=== PATIENT | female | born 1930 | race Caucasian/White ===

== ENCOUNTER → 2016-12-04 | Outpatient (CLI) | payer MEDICARE, MEDICAID ==
[~2016-12-04] MED LIST: AC325T PO; ACET-168 PO; ACET325T38 PO; ALBU0.8322 IH; ALLO100T PO; ALLP100T PO; ASP325T PO; ASP81TEC PO; ASPI-875 PO; BETA15CR4 TOP; CEPH-38 PO; CHOL100011 PO; CIPR100T; CLPD75T PO; CPR250T PO; CPR500T PO; CTLP20T PO; CYAN10007 PO; D50KC; DIVA125C10 PO; DIVA125T2 PO; DVL125C PO; DVL500TSR; FAMO20TA5 PO; FAMO40TA6 PO; FLC1T PO; FRSM40T; FURO20TA4 PO; FURO80TA3; GABA600T; GALA24CA; GALA24CA PO; GUAI10SY4 PO; GUAI5SYR PO; HYDR-31; HYDR-3720 PO; HYDR-3820 PO; IBP800T PO; INSU100C4; INSU100V6 SQ; INSU100V8; KCL20TCR; LANO454C3 TOP; LOPE-134 PO; LOPE2TAB17 PO; MAGN-77 PO; MAGN400O7 PO; MELO7.5T46 PO; MEMA10TA; MEMA10TA PO; METO200T4 PO; METO200T6 PO; MULT-25 PO; MULT1TAB12 PO; MULT1TAB53; NATURAL TEARS OU; NF-KET2% TOP; NITR100C3; NITR100C3 PO; NST15O; NTR.4SL SL; NYST1POW15 TOP; OMEG1CAP51 PO; OMG1KC; ONDN4T PO; PEG250PW; PEG250PW PO; PNT40TEC; POLY17PO23 PO; PRAM0.252 PO; PRAM1.5T4; PREG100C PO; PROM25SU43 RC; RMP2.5C PO; SENN1TAB76; SENN1TAB76 PO; SENN8.6T80 PO; SENSICARE TOP; SMV10T; SMV10T PO; SPIR50TA27; SPRN25T PO; TR1C15 TOP; TRAM50TA2 PO; TRL10C90 TOP; TRM50TRX; ZINC57OI TP; [UNRECOGNIZED DRUG - OTHER] TOP
[2016-12-04 21:13] LABS: BILIRUBIN,URINE NEGATIVE (NEGATIVE); KETONES,URINE NEGATIVE (NEGATIVE); LEUKOCYTE ESTERASE ,URINE 3+ (NEGATIVE); NITRITE,URINE NEGATIVE (NEGATIVE); PH,URINE 5 (5-9); PROTEIN,URINE 1+ (NEGATIVE); UROBILINOGEN,URINE NORMAL (NORMAL)
[2016-12-04 21:23] LABS: WBC,URINE TNTC /HPF
== END ==
LOC: CVS 21:08
PROVIDERS: ATTEND Family Medicine
DX: R31.9 Hematuria, unspecified (principal)
CPT/HCPCS: 81000; 87077; 87088; 87186

== ENCOUNTER → 2016-12-15 | Outpatient (CLI) | payer MEDICARE, MEDICAID ==
[~2016-12-15] MED LIST changes: -ACET-168 PO; -ACET325T38 PO; -BETA15CR4 TOP; -DIVA125C10 PO; -DVL125C PO; -FAMO20TA5 PO; -GUAI5SYR PO; -HYDR-3820 PO; -LOPE-134 PO; -MAGN400O7 PO; -MELO7.5T46 PO; -METO200T4 PO; -PREG100C PO; -PROM25SU43 RC
[2016-12-15 19:31] LABS: BILIRUBIN,URINE NEGATIVE (NEGATIVE); KETONES,URINE NEGATIVE (NEGATIVE); LEUKOCYTE ESTERASE ,URINE 2+ (NEGATIVE); NITRITE,URINE NEGATIVE (NEGATIVE); PH,URINE 6 (5-9); PROTEIN,URINE 1+ (NEGATIVE); UROBILINOGEN,URINE NORMAL (NORMAL)
[2016-12-15 19:41] LABS: SQUAMOUS EPITHELIAL CELL,UR 0-2 /HPF; WBC,URINE 25-50 /HPF
== END ==
LOC: CVS 19:25
PROVIDERS: ATTEND Family Medicine
DX: N39.0 Urinary tract infection, site not specified (principal)
CPT/HCPCS: 81000; 87088

== ENCOUNTER → 2016-12-18 | Outpatient (CLI) | payer MEDICARE, MEDICAID ==
[~2016-12-18] VITALS: Ht 157.5 cm; Wt 99.8 kg
[2016-12-18 16:28] VITALS: BP 136/64
== END ==
LOC: SDC 15:12
PROVIDERS: ATTEND Family Medicine
DX: Z45.2 Encounter for adjustment and management of vascular access device (principal); Z79.2 Long term (current) use of antibiotics

== ENCOUNTER → 2016-12-23 | Outpatient (CLI) | payer MEDICARE, MEDICAID ==
[2016-12-23 23:22] LABS: BILIRUBIN,URINE NEGATIVE (NEGATIVE); KETONES,URINE 1+ (NEGATIVE); LEUKOCYTE ESTERASE ,URINE 2+ (NEGATIVE); NITRITE,URINE NEGATIVE (NEGATIVE); PH,URINE 5 (5-9); PROTEIN,URINE 1+ (NEGATIVE); UROBILINOGEN,URINE NORMAL (NORMAL)
[2016-12-23 23:31] LABS: WBC,URINE 25-50 /HPF
== END ==
LOC: CVS 23:14
PROVIDERS: ATTEND Family Medicine
DX: Z79.2 Long term (current) use of antibiotics (principal)
CPT/HCPCS: 81000; 87088

== ENCOUNTER 2017-01-04 10:19 | Emergency (ER) | payer MEDICARE, MEDICAID ==
[~2017-01-04] VITALS: Ht 157.5 cm; Wt 99.8 kg
--- NOTE | 2017-01-04 10:42 | ED Fall/Injury ---
General Chief Complaint: Trauma-Non Activation Stated Complaint: FALL Source: patient Exam Limitations: no limitations History of Present Illness Time seen by provider: 10:23 Initial Comments Here by EMS with report of fall from the [facility]. Patient apparently was transferring when she fell backwards and hit her head on a wheelchair bar. No loss of consciousness. Small laceration noted. Tetanus is up-to-date. Denies other pain. Occurred: just prior to arrival (30 min ago) Severity: mild Injuries/Pain Location: head, neck Context: lost balance Loss of Consciousness: no loss of consciousness Modifying Factors: Improves With Immobilization, Worse With Movement Associated Symptoms (Fall): Denies Symptoms Allergies and Home Medications Allergies Coded Allergies: Penicillins (Verified Allergy, Unknown, 04/01/06) codeine (Verified Allergy, Unknown, 04/01/06) propoxyphene (Verified Allergy, Unknown, 04/01/06) Home Medications Acetaminophen 325 Mg Tablet, 650 MG PO Q4H PRN for PAIN/TEMP, (Reported) TAKES 2 (325MG) TABLETS NEEDED FOR MILD PAIN AND ELEVATED TEMP *MAX 6 TIMES* (NOT TO EXCEED 4GMS OF ACETAMINOPHEN IN 24 HOURS) Albuterol Sulfate 2.5 Mg/3 Ml Solution, 2.5 MG IH Q4H PRN, (Reported) NEEDED FOR COUGH *MAX 6 TIMES* Allopurinol 100 Mg Tab, 100 MG PO BID, (Reported) Cephalexin Monohydrate 500 Mg Capsule, 1 EACH PO TID for 7 Days Prescribed by: AUBREY LOPEZ on 05/03/13 1305 Cholecalciferol 1,000 Unit Capsule, 1,000 UNIT PO BID, (Reported) Ciprofloxacin Hcl 250 Mg Tablet, 250 MG PO DAILY, (Reported) UTI PROPHYLAXIS Citalopram Hydrobromide 20 Mg Tablet, 20 MG PO HS, (Reported) Cyanocobalamin 1,000 Mcg Tablet.sa, 1,000 MCG PO DAILY, (Reported) Divalproex Sodium 125 Mg Tablet.dr, 375 MG PO HS, (Reported) TAKES 3 (125MG) TABLETS AT BEDTIME Famotidine 40 Mg Tablet, 40 MG PO BID, (Reported) Folic Acid 1 Mg Tablet, 0.5 MG PO DAILY, (Reported) TAKES 1/2 (1MG) TABLET DAILY Furosemide 20 Mg Tablet, 20 MG PO MON, WED, FRI, (Reported) Galantamine Hydrobromide 24 Mg Cap24h.pel, 24 MG PO DAILY, (Reported) Guaifenesin/Dextromethorphan 10 Ml Liqd, 5 ML PO Q4H PRN for COUGH, (Reported) NEEDED FOR COUGH Hydrocodone Bit/Acetaminophen 1 Ea Tab, 1 TAB PO Q4H PRN for PAIN, (Reported) 10-325MG TABLET NEEDED FOR PAIN *6 TIMES MAX *(NOT TO EXCEED 4GMS OF ACETAMINOPHEN IN 24 HOURS) Hydrocodone Bit/Acetaminophen 1 Ea Tab, 1 TAB PO HS, (Reported) 10-325MG TABLET NOT TO EXCEED 3GMS OF ACETAMINOPHEN IN 24 HOURS) Insulin Glargine,Hum.rec.anlog 100 Unit/1 Ml Vial, 45 UNIT SQ DAILY, (Reported) Insulin Glargine,Hum.rec.anlog 100 Unit/1 Ml Vial, 12 UNIT SQ HS, (Reported) Magnesium Hydroxide 80 Mg/Ml Oral.susp, 30 ML PO DAILY PRN for CONSTIPATION, ( Reported) NEEDED FOR CONSTIPATION Memantine Hcl 10 Mg Tablet, 10 MG PO HS, (Reported) Metoprolol Succinate 200 Mg Tab.sr.24h, 200 MG PO DAILY, (Reported) Mineral Oil/Petrolatum,White 16 Oz Cream.gm., TOP BID, (Reported) APPLY OVER TOP OF TRIAMCINOLONE CREAM TWICE DAILY UNTIL HEALED Multivitamins W-Minerals 1 Each Tablet, 1 TAB PO HS, (Reported) Nitroglycerin 0.4 Mg Tab, 0 SL PRN PRN, (Reported) 1 TABLET EVERY 5 MINUTES X 3 DOSES NEEDED FOR CHEST PAIN Chazy-3 Fatty Acids/Fish Oil 1 Each Capsule, 1,000 MG PO DAILY, (Reported) Ondansetron Hcl 4 Mg Tab, 4 MG PO Q4H PRN for NAUSEA, (Reported) NEEDED FOR NAUSEA MAX 6 TIMES Polyethylene Glycol 17 Gm Pack, 17 GM PO EVERY OTHER DAY, (Reported) Ramipril 2.5 Mg Capsule, 2.5 MG PO DAILY, (Reported) Senna 8.6 Mg Tab, 1 TAB PO BID, (Reported) Simvastatin 10 Mg Tab, 10 MG PO HS, (Reported) Spironolactone 25 Mg Tab, 25 MG PO DAILY, (Reported) Trolamine Salicylate 90 Gm Tube, TOP HS, (Reported) APPLY TO BILATERAL FEET Zinc Oxide 57 Gm Oint..gm., TP BID PRN for GAULDING, (Reported) APPLY NEEDED TWICE DAILY TO GAULDING AREAS [Natural Tears] , 2 DROPS OU Q4H PRN for DRYNESS/ITCH, (Reported) NEEDED FOR DRYNESS/ ITCHING MAX 6 TIMES [Nature Care Gel] , TOP HS, (Reported) APPLY GEL TO RIGHT NARE BEFORE PLACING OXYGEN [Sensicare 3] , TOP BID PRN for PROTECTIVE BARRIER, (Reported) APPLY TO BUTTOCKS AND CRACK TWICE DAILY UNTIL HEALED THEN NEEDED FOR A PROTECTIVE BARRIER Constitutional: see HPI, No chills, No fever Eyes: No Symptoms Reported Ears, Nose, Mouth, Throat: no symptoms reported Respiratory: no symptoms reported Cardiovascular: no symptoms reported Gastrointestinal: no symptoms reported Musculoskeletal: no symptoms reported Skin: see HPI, lesions Psychiatric/Neurological: No Symptoms Reported Other History Limited by dementia Past Jtmwaae-Vkaqxm-Yfwgza Hx Patient Social History Alcohol Use: Denies Use Recreational Drug Use: No Smoking Status: Unknown if Ever Smoked Recent Hopitalizations: Yes Immunizations Up To Date Date of Pneumonia Vaccine: May 26, 2008 Date of Influenza Vaccine: Mar 21, 2015 Surgeries HX Surgeries: Yes Surgeries: Coronary Stent Respiratory Hx Respiratory Disorders: Yes (dgtr states that pt refuses CPAP) Respiratory Disorders: Sleep Apnea, COPD Cardiovascular Hx Cardiac Disorders: Yes (STENT, history of heart failure) Cardiac Disorders: Atrial Fibrillation, Coronary Artery Disease, Hypertension Neurological Hx Neurological Disorders: Yes Neurological Disorders: Dementia, TIA Reproductive System Hx Reproductive Disorders: No Genitourinary Hx Genitourinary Disorders: Yes (incontinence) Gastrointestinal Hx Gastrointestinal Disorders: Yes (Dysphagia) Gastrointestinal Disorders: Gastroesophageal Reflux Musculoskeletal Hx Musculoskeletal Disorders: Yes (MUSCLE WEAKNESS, RLS) Musculoskeletal Disorders: Osteoporosis Endocrine Hx Endocrine Disorders: Yes Endocrine Disorders: Diabetes, Insulin dep HEENT HX ENT Disorders: No Psychosocial Hx Psychiatric Problems: Yes Behavioral Health Disorders: Anxiety, Depression Blood Transfusions Hx Blood Disorders: No Reviewed Nursing Assessment Reviewed/Agree w Nursing PMH: Yes Family Medical History Significant Family History: No Pertinent Family Hx Physical Exam Vital Signs Vital Sign - Last 12Hours 01/04/17 10:19 Temp 98.1 Pulse 79 Resp 18 B/P (MAP) 108/63 Pulse Ox 96 O2 Delivery Room Air Capillary Refill : General Appearance: WD/WN, no apparent distress Neck: full range of motion, supple Cardiovascular: regular rate, rhythm, no murmur Respiratory: lungs clear, normal breath sounds Gastrointestinal: non tender, soft Back: normal inspection, no CVA tenderness, no vertebral tenderness Neurologic/Psychiatric: alert, oriented x 3 Skin: normal color, warm/dry, other (1 cm laceration to the posterior aspect of the head with bleeding controlled.) Penelope Coma Score Best Eye Response: (4) Open Spontaneously Best Verbal Response: (5) Oriented Best Motor Response: (6) Obeys Commands Laceration Repair : Wound Location: Scalp Other Wound Location Posterior Wound Length (cm): 1 Wound's Depth, Shape: superficial Wound Explored: contaminated Irrigated w/ Saline (ccs): 50 Betadine Prep?: Yes Anesthesia: 1% Lidocaine Volume Anesthetic (ccs): 1 Wound Debrided: minimal Staple Repair: Stapler 35W Number of Sutures: 1 Layer Closure?: 1 Number Deep Layer Sutures: 0 Progress Cleaned and anesthetized. Wound closed with One staple. Tolerated procedure well. No complications. Progress/Results/Core Measures Results/Orders My Orders Orders - SHELLIE RUELAS MD Ct Head/Cervical Spine Wo (01/04/17 10:28) Lidocaine 1% Injection (Xylocaine 1% Inj (01/04/17 12:20) Vital Signs/I&O Vital Sign - Last 12Hours 01/04/17 10:19 Temp 98.1 Pulse 79 Resp 18 B/P (MAP) 108/63 Pulse Ox 96 O2 Delivery Room Air Progress Note : Progress Note Seen and evaluated. CT head and neck ordered. Tetanus is up-to-date. Monitor patient. 1220: No acute findings. Laceration cleaned and closed by me with breanna. Discharge back to [facility] with return precautions. Patient family verbalized understanding instructions and agreement with plan. Diagnostic Imaging Diagonstic Imaging: CT Plain Films/CT/US/NM/MRI: c-spine, head Comments VIA [facility]. [place], [place] NAME: SONUCASSANDRA SHARMA REC#: [id number] PT STATUS: REG ER : 1930 PHYSICIAN: SHELLIE RUELAS MD ADMIT DATE: 01/04/17/ER Draft Date of Exam:01/04/17 CT HEAD/CERVICAL SPINE WO CLINICAL INDICATION: Patient fell in bathroom this morning, has headache and neck pain. EXAM: Head CT without IV contrast. Axial CT scan of the cervical spine with sagittal and coronal reformations. COMPARISON: CT scan of the head and cervical spine without contrast dated 04/26/2015. FINDINGS: HEAD CT: There is no evidence of acute cerebral infarct, intracranial hemorrhage, or gross mass effect. Areas of focal and subtle patchy areas of low-attenuation white matter changes in both cerebral hemispheres, likely representing chronic small vessel ischemic disease. There is slight progression of brain parenchymal volume loss compared to the prior study. There is normal lovell-white matter distinction. There is no significant midline shift or herniation. There is no evidence of hydrocephalus. The basal cisterns are unremarkable. The skull, extracranial soft tissue, and orbits are unremarkable. The paranasal sinuses are unremarkable. CERVICAL SPINE: There is no acute cervical spine fracture. There is no significant change to the multilevel cervical spine degenerative disease. There is stable grade 1 anterolisthesis C2 on C3 with no pars defect seen and is likely degenerative. There is multilevel loss of intervertebral disc height seen throughout cervical spine which is severe at the C3-C4, C4-C5, C5-C6 levels. There are some degree of intervertebral bone fusion/bridging seen at the C3-C6 levels. There is no moderate to severe left C6-C7 bony neural foramen narrowing which is stable. The neck soft tissue structures show no significant interval abnormality. Visualized lung apices are clear. IMPRESSION: 1: There is no evidence of acute intracranial process. 2: There is no interval acute cervical spine fracture. 3: There is stable multilevel cervical spine degenerative disease including grade 1 anterolisthesis of C2 on C3. Dictated on workstation # [id number] Dict: 01/04/17 1057 Trans: 01/04/17 1118 [facility] [id number] Interpreted by: WARREN RIOS MD Electronically signed by: Departure Impression Impression: Primary Impression: Scalp laceration Qualified Codes: S01.01XA - Laceration without foreign body of scalp, initial encounter Additional Impression: Minor head injury Qualified Codes: S00.90XA - Unspecified superficial injury of unspecified part of head, initial encounter Disposition: 01 HOME, SELF-CARE Condition: Stable Departure-Patient Inst. Decision time for Depature: 12:22 Referrals: AUBREY LOPEZ DO (PCP/Family) Primary Care Physician Patient Instructions: Laceration Repair With Breanna (DC), Minor Head Injury ( DC) Add. Discharge Instructions: All discharge instructions reviewed with patient and/or family. Voiced understanding. Staple out in 7 days. Keep wound clean. You may use antibiotic ointment over wound once or twice daily for the next several days and then as needed. You may shower but do not soak wound. Return for worse pain, fever, vomiting, weakness, breathing problems or other concerns as needed. SHELLIE RUELAS MD Jan 04, 2017 10:42
--- NOTE | 2017-01-04 11:19 | Diagnostic Imaging Report ---
CLINICAL INDICATION: Patient fell in bathroom this morning, has headache and neck pain. EXAM: Head CT without IV contrast. Axial CT scan of the cervical spine with sagittal and coronal reformations. COMPARISON: CT scan of the head and cervical spine without contrast dated 04/26/2015. FINDINGS: HEAD CT: There is no evidence of acute cerebral infarct, intracranial hemorrhage, or gross mass effect. Areas of focal and subtle patchy areas of low-attenuation white matter changes in both cerebral hemispheres, likely representing chronic small vessel ischemic disease. There is slight progression of brain parenchymal volume loss compared to the prior study. There is normal lovell-white matter distinction. There is no significant midline shift or herniation. There is no evidence of hydrocephalus. The basal cisterns are unremarkable. The skull, extracranial soft tissue, and orbits are unremarkable. The paranasal sinuses are unremarkable. CERVICAL SPINE: There is no acute cervical spine fracture. There is no significant change to the multilevel cervical spine degenerative disease. There is stable grade 1 anterolisthesis C2 on C3 with no pars defect seen and is likely degenerative. There is multilevel loss of intervertebral disc height seen throughout cervical spine which is severe at the C3-C4, C4-C5, C5-C6 levels. There are some degree of intervertebral bone fusion/bridging seen at the C3-C6 levels. There is no moderate to severe left C6-C7 bony neural foramen narrowing which is stable. The neck soft tissue structures show no significant interval abnormality. Visualized lung apices are clear. IMPRESSION: 1: There is no evidence of acute intracranial process. 2: There is no interval acute cervical spine fracture. 3: There is stable multilevel cervical spine degenerative disease including grade 1 anterolisthesis of C2 on C3. Dictated by: Dictated on workstation # [id number]
[2017-01-04] MEDS ORDERED: LIDOCAINE 1% INJ 20 ML (XYLOCAINE) VIAL INJ STA (12:20)
[2017-01-04] MEDS ORDERED: PREG100C PO (12:59)
[2017-01-04] MEDS ORDERED: DIVA125C10 PO (12:59)
[2017-01-04] MEDS ORDERED: FAMO20TA5 PO (12:59)
[2017-01-04] MEDS ORDERED: GUAI5SYR PO (12:59)
[2017-01-04] MEDS ORDERED: HYDR-3820 PO (12:59)
[2017-01-04] MEDS ORDERED: ACET325T38 PO (12:59)
[2017-01-04] MEDS ORDERED: DVL125C PO (12:59)
[2017-01-04] MEDS ORDERED: ACET-168 PO (12:59)
[2017-01-04] MEDS ORDERED: MELO7.5T46 PO (12:59)
[2017-01-04] MEDS ORDERED: LOPE-134 PO (12:59)
[2017-01-04] MEDS ORDERED: MAGN400O7 PO (12:59)
[2017-01-04] MEDS ORDERED: BETA15CR4 TOP (12:59)
[2017-01-04] MEDS ORDERED: GALA24CA PO (12:59)
[2017-01-04] MEDS ORDERED: METO200T32 PO (12:59)
[2017-01-04] MEDS ORDERED: PROM25SU43 RC (12:59)
[2017-01-04 13:47] VITALS: BP 129/78
== END 2017-01-04 13:54 | disposition home or self-care (01) ==
LOC: EDUNIT# 10:19 → ER 10:21
DX: S09.90XA Unspecified injury of head, initial encounter (principal); S01.02XA Laceration with foreign body of scalp, initial encounter; F41.9 Anxiety disorder, unspecified; F32.9 Major depressive disorder, single episode, unspecified; E11.9 Type 2 diabetes mellitus without complications; M81.0 Age-related osteoporosis without current pathological fracture; K21.9 Gastro-esophageal reflux disease without esophagitis; I48.91 Unspecified atrial fibrillation; I25.10 Atherosclerotic heart disease of native coronary artery without angina pectoris; I11.0 Hypertensive heart disease with heart failure; I50.9 Heart failure, unspecified; J44.9 Chronic obstructive pulmonary disease, unspecified; G47.30 Sleep apnea, unspecified; Z79.4 Long term (current) use of insulin; Z86.73 Personal history of transient ischemic attack (TIA), and cerebral infarction without residual deficits; Z95.5 Presence of coronary angioplasty implant and graft; W01.198A Fall on same level from slipping, tripping and stumbling with subsequent striking against other object, initial encounter; Y92.129 Unspecified place in nursing home as the place of occurrence of the external cause
CPT/HCPCS: 70450; 72125; 99283

== ENCOUNTER → 2017-02-02 | Outpatient (CLI) | payer MEDICARE, MEDICAID ==
[~2017-02-02] MED LIST changes: +ACET-168 PO; +ACET325T38 PO; +BETA15CR4 TOP; +DIVA125C10 PO; +DVL125C PO; +FAMO20TA5 PO; +GUAI5SYR PO; +HYDR-3820 PO; +LOPE-134 PO; +MAGN400O7 PO; +MELO7.5T46 PO; +METO200T32 PO; +PREG100C PO; +PROM25SU43 RC
--- NOTE | 2017-02-02 12:58 | Diagnostic Imaging Report ---
PROCEDURE: CT head without contrast. TECHNIQUE: Multiple contiguous axial images were obtained through the brain without the use of intravenous contrast. INDICATION: Dizziness and headache. COMPARISON: 01/04/2017. FINDINGS: No hyperdense hemorrhage or space-occupying mass. No hydrocephalus or midline shift. Generalized atrophy without lobar predominance. Basilar cisterns remain widely patent. No acute calvarial abnormality. Paranasal sinuses are clear. Mastoid air cells are also clear. Orbits are normal. IMPRESSION: No acute intracranial process. No change from 01/04/2017, examination. Dictated by: Dictated on workstation # [id number]
== END ==
LOC: RAD 11:26
PROVIDERS: ATTEND Family Medicine
DX: R51 Headache (principal); R42 Dizziness and giddiness
CPT/HCPCS: 70450

== ENCOUNTER 2018-07-29 21:17 | Inpatient (IN) | payer MEDICARE, MEDICAID ==
[~2018-07-29] VITALS: Ht 157.5 cm; Wt 109.8 kg
[~2018-07-29 21:17] MED LIST changes: +DIVA125C PO; -DVL125C PO; -METO200T32 PO; +METO200T48 PO
[2018-07-29] MEDS ORDERED: NS IV 1000 ML 1,000 ML IV SCH ×2 (21:19)
--- NOTE | 2018-07-29 21:25 | ED General ---
General Stated Complaint: SOB Source of Information: Patient, EMS, [facility] Records Exam Limitations: Other (clinical condition and background of dementia) History of Present Illness Date Seen by Provider: Jul 29, 2018 Time Seen by Provider: 21:13 Initial Comments Patient presents to ER by EMS from via [facility] [place] with a chief complaint of decreased oxygen sats around 90% on room air and productive cough, rails. EMS reports that there is audible rails as well as a history of COPD. Patient denies having any wheezing and is not sure when the last time she had a DuoNeb was. She was not on any oxygen but is apparently supposed to be on 2-3 L at baseline. EMS put her on 2 L which brought her oxygen sats up in the mid to high 90s. No known history of fever. No nausea chest pain abdominal pain or diarrhea. Patient is a history of heart disease, atrial flutter and diabetes. She's not on a blood thinner probably due to her high risk of falls. She has a history of dementia without behaviors. Allergies and Home Medications Allergies Coded Allergies: Penicillins (Verified Allergy, Unknown, 04/01/06) codeine (Verified Allergy, Unknown, 04/01/06) propoxyphene (Verified Allergy, Unknown, 04/01/06) Home Medications Acetaminophen 500 Mg Tablet, 500 MG PO BID, (Reported) Acetaminophen 325 Mg Tablet, 650 MG PO Q4H PRN for MILD PAIN/TEMP, (Reported) TAKES 2 (325MG) TABLETS Allopurinol 100 Mg Tab, 100 MG PO 1100, (Reported) Betamethasone Dipropionate 15 Gm Cream..g., TOP BID, (Reported) Cholecalciferol 1,000 Unit Capsule, 1,000 UNIT PO BID, (Reported) Citalopram Hydrobromide 20 Mg Tablet, 20 MG PO HS, (Reported) Cyanocobalamin 1,000 Mcg Tablet.sa, 1,000 MCG PO 1100, (Reported) Divalproex Sodium 125 Mg Cap, 250 MG PO HS, (Reported) TAKES 2 (125MG) CAPSULES Divalproex Sodium 125 Mg Cap.sprink, 125 MG PO 1100, (Reported) Famotidine 20 Mg Tablet, 20 MG PO BID, (Reported) Furosemide 20 Mg Tablet, 20 MG PO MoWeFr, (Reported) Galantamine HBr 24 Mg Cap24h.pel, 24 MG PO DAILY, (Reported) Guaifenesin/Dextromethorphan 5 Ml Syrup, 5 ML PO Q4H PRN for COUGH, (Reported) Hydrocodone Bit/Acetaminophen 1 Ea Tab, 1 TAB PO HS, (Reported) Hydrocodone/Acetaminophen 1 Each Tablet, 1 TAB PO Q4H PRN for PAIN-MODERATE, ( Reported) Insulin Glargine,Hum.rec.anlog 100 Unit/1 Ml Vial, 52 UNIT SQ DAILY, (Reported) Loperamide HCl 2 Mg Tablet, 2 MG PO QID PRN for LOOSE STOOLS, (Reported) Magnesium Hydroxide 400 Mg/5 Ml Oral.susp, 30 ML PO DAILY PRN for CONSTIPATION- 7TH LINE, (Reported) Meloxicam 7.5 Mg Tablet, 7.5 MG PO 1100, (Reported) Metoprolol Succinate 200 Mg Tab.er.24h, 200 MG PO DAILY, (Reported) Multivitamins W-Minerals 1 Each Tablet, 1 TAB PO HS, (Reported) Nitroglycerin 0.4 Mg Tab, 0.4 MG SL UD PRN for CHEST PAIN, (Reported) 1 TABLET EVERY 5 MINUTES X 3 DOSES NEEDED FOR CHEST PAIN Ondansetron Hcl 4 Mg Tab, 4 MG PO Q4H PRN for NAUSEA/VOMITING-1ST LINE, ( Reported) Polyethylene Glycol 17 Gm Pack, 17 GM PO 1100, (Reported) Pregabalin 100 Mg Capsule, 100 MG PO HS, (Reported) Promethazine HCl 25 Mg Supp.rect, 25 MG RC Q4H PRN for NAUSEA/VOMITING-2ND LINE, (Reported) Senna 8.6 Mg Tab, 8.6 MG PO BID, (Reported) Spironolactone 25 Mg Tab, 25 MG PO 1100, (Reported) Patient Home Medication List Home Medication List Reviewed: Yes Review of Systems Review of Systems Constitutional: chills; No fever; malaise, weakness EENTM: No ear pain, No eye pain Respiratory: cough, phlegm, short of breath Cardiovascular: No chest pain, No palpitations Gastrointestinal: No abdominal pain, No constipation; diarrhea, nausea Genitourinary: No discharge, No dysuria Musculoskeletal: No back pain, No joint pain Past Juucafl-Utddfc-Syrvur Hx Patient Social History Alcohol Use: Denies Use Recreational Drug Use: No Smoking Status: Never a Smoker Recent Foreign Travel: No Contact w/Someone Who Travel: No Recent Hopitalizations: Yes Immunizations Up To Date Tetanus Booster (TDap): Less than 5yrs Date of Pneumonia Vaccine: May 26, 2008 Date of Influenza Vaccine: Mar 21, 2015 Past Medical History Surgeries: Yes (GALLBLADDER, APPENDIX, HISTORECTOMY, STENT PLACEMENT, SURGERY ON FEET HANDS) Coronary Stent Respiratory: Yes (dgtr states that pt refuses CPAP) Sleep Apnea, COPD Cardiac: Yes (STENT, history of heart failure) Atrial Fibrillation, Coronary Artery Disease, Hypertension Neurological: Yes Dementia, TIA Reproductive Disorders: No Gastrointestinal: Yes (Dysphagia) Gastroesophageal Reflux Musculoskeletal: Yes (MUSCLE WEAKNESS, RLS) Osteoporosis Endocrine: Yes Diabetes, Insulin dep Psychosocial: Yes Anxiety, Depression Blood Disorders: No Family Medical History No Pertinent Family Hx Physical Exam-Suspected Sepsis Physical Exam Vital Signs Vital Signs - First Documented 07/29/18 07/29/18 22:22 22:30 Pulse 82 Pulse Ox 98 O2 Delivery Nasal Cannula O2 Flow Rate 2.00 Capillary Refill : Height, Weight, BMI Height: 5'2.00" Weight: 220lbs. oz. [id number]; 40.23 BMI Method:Stated General Appearance: Moderate Distress, Obese Eyes: Bilateral Eye Normal Inspection, Bilateral Eye PERRL, Bilateral Eye EOMI HEENT: PERRL/EOMI, Pharynx Normal, Moist Mucous Membranes Neck: Full Range of Motion, Normal Inspection, Non Tender Respiratory: No Accessory Muscle Use, Crackles (kayla), Respiratory Distress ( mild), Wheezing (faint) Cardiovascular: Regular Rate, Rhythm, Normal Peripheral Pulses Extremity: Normal Capillary Refill, Normal Inspection Neurologic/Psychiatric: Alert, Disoriented (oriented to self only) Skin: normal color, warm/dry Focused Exam Lactate Level 07/29/18 21:50: Lactic Acid Level 1.38 Lactic Acid Level Laboratory Tests Test 07/29/18 21:50 Lactic Acid Level 1.38 MMOL/L (0.50-2.00) Progress/Results/Core Measures Suspected Sepsis SIRS Temperature: Pulse: Respiratory Rate: Laboratory Tests 07/29/18 21:38: White Blood Count 16.7H Blood Pressure / Mean: 07/29/18 21:50: Lactic Acid Level 1.38 Laboratory Tests 07/29/18 21:38: INR Comment 1.1, Platelet Count 249 07/29/18 22:05: Creatinine 0.86, Total Bilirubin 0.3 Results/Orders Lab Results Laboratory Tests Test 07/29/18 21:38 07/29/18 21:50 07/29/18 22:02 07/29/18 22:05 Range/Units White Blood Count 16.7 H 4.3-11.0 10^3/uL Red Blood Count 4.13 L 4.35-5.85 10^6/uL Hemoglobin 12.9 11.5-16.0 G/DL Hematocrit 38 35-52 % Mean Corpuscular Volume 93 80-99 FL Mean Corpuscular Hemoglobin 31 25-34 PG Mean Corpuscular Hemoglobin Concent 34 32-36 G/DL Red Cell Distribution Width 13.0 10.0-14.5 % Platelet Count 249 130-400 10^3/uL Mean Platelet Volume 10.1 7.4-10.4 FL Neutrophils (%) (Auto) 88 H 42-75 % Lymphocytes (%) (Auto) 8 L 12-44 % Monocytes (%) (Auto) 4 0-12 % Eosinophils (%) (Auto) 0 0-10 % Basophils (%) (Auto) 0 0-10 % Neutrophils # (Auto) 14.7 H 1.8-7.8 X 10^3 Lymphocytes # (Auto) 1.4 1.0-4.0 X 10^3 Monocytes # (Auto) 0.6 0.0-1.0 X 10^3 Eosinophils # (Auto) 0.0 0.0-0.3 10^3/uL Basophils # (Auto) 0.0 0.0-0.1 10^3/uL Neutrophils % (Manual) 75 % Lymphocytes % (Manual) 8 % Monocytes % (Manual) 4 % Eosinophils % (Manual) 0 % Basophils % (Manual) 0 % Band Neutrophils 12 % Reactive Lymphocytes 1 % Polychromasia SLIGHT Prothrombin Time 14.6 12.2-14.7 SEC INR Comment 1.1 0.8-1.4 Activated Partial Thromboplast Time 43 H 24-35 SEC B-Type Natriuretic Peptide 73.0 <100.0 PG/ML Lactic Acid Level 1.38 0.50-2.00 MMOL/L Urine Color YELLOW Urine Clarity CLOUDY H Urine pH 6.5 5-9 Urine Specific [place] 1.020 1.016-1.022 Urine Protein 3+ H NEGATIVE Urine Glucose (UA) 2+ H NEGATIVE Urine Ketones 1+ H NEGATIVE Urine Nitrite POSITIVE H NEGATIVE Urine Bilirubin NEGATIVE NEGATIVE Urine Urobilinogen 1 NORMAL MG/DL Urine Leukocyte Esterase 3+ H NEGATIVE Urine RBC (Auto) 3+ H NEGATIVE Urine RBC 0-2 /HPF Urine WBC TNTC H /HPF Urine Squamous Epithelial Cells 0-2 /HPF Urine Crystals NONE /LPF Urine Bacteria LARGE H /HPF Urine Casts NONE /LPF Urine Mucus SMALL H /LPF Urine Culture Indicated CULTURE PENDING Sodium Level 140 135-145 MMOL/L Potassium Level 4.1 3.6-5.0 MMOL/L Chloride Level 101 98-107 MMOL/L Carbon Dioxide Level 29 21-32 MMOL/L Anion Gap 10 5-14 MMOL/L Blood Urea Nitrogen 22 H 7-18 MG/DL Creatinine 0.86 0.60-1.30 MG/DL Estimat Glomerular Filtration Rate > 60 BUN/Creatinine Ratio 26 Glucose Level 263 H 70-105 MG/DL Calcium Level 8.8 8.5-10.1 MG/DL Corrected Calcium 9.5 8.5-10.1 MG/DL Magnesium Level 1.8 1.8-2.4 MG/DL Total Bilirubin 0.3 0.1-1.0 MG/DL Aspartate Amino Transf (AST/SGOT) 15 5-34 U/L Alanine Aminotransferase (ALT/SGPT) 6 0-55 U/L Alkaline Phosphatase 54 40-136 U/L C-Reactive Protein High Sensitivity 14.30 H 0.00-0.50 MG/DL Total Protein 6.7 6.4-8.2 GM/DL Albumin 3.1 L 3.2-4.5 GM/DL Test 07/29/18 22:12 Range/Units Blood Gas Puncture Site RIGHT RADIAL Blood Gas Patient Temperature 99.1 Arterial Blood pH 7.42 7.37-7.43 Arterial Blood Partial Pressure CO2 49 H 35-45 MMHG Arterial Blood Partial Pressure O2 76 L 79-93 MMHG Arterial Blood HCO3 31 H 23-27 MMOL/L Arterial Blood Total CO2 32.3 H 21.0-31.0 MMOL/L Arterial Blood Oxygen Saturation 96 94-100 % Arterial Blood Base Excess 6.5 H -2.5-2.5 MMOL/L Pedro Pablo Test YES-POS Blood Gas Ventilator Setting NO Blood Gas Inspired Oxygen 2L Micro Results Microbiology 07/29/18 Influenza Types A,B Antigen (JOCELYN) - Final, Complete My Orders Orders - AMBIKA GANDHI J Cbc With Automated Diff (07/29/18 21:19) Comprehensive Metabolic Panel (07/29/18 21:19) Blood Culture (07/29/18 21:19) Sputum Culture (07/29/18 21:19) Urinalysis (07/29/18 21:19) Urine Culture (07/29/18 21:19) Protime With Inr (07/29/18:19) Partial Thromboplastin Time (07/29/18:) Chest 1 View, Ap/Pa Only (07/29/18 21:19) Saline Lock/Iv-Start (07/29/18 21:19) Saline Lock/Iv-Start (07/29/18 21:19) Vital Signs Adult Sepsis Patie Q15M (07/29/18 21:19) O2 (07/29/18 21:19) Remove Rings In Anticipation O (07/29/18:) Lactic Acid Analyzer (07/29/18:19) Influenza A And B Antigens (07/29/18:19) Ns Iv 1000 Ml (Sodium Chloride 0.9%) (07/29/18 21:19) Cefepime Injection (Maxipime Injection) (07/29/18 21:30) Saline Lock/Iv-Start (07/29/18 21:19) Ns Iv 1000 Ml (Sodium Chloride 0.9%) (07/29/18 21:19) Albuterol/Ipra Inhalation Soln (Duoneb I (07/29/18 21:30) Svn Small Volume Nebulizer (07/29/18:19) Arterial Blood Gas (07/29/18 21:19) Ekg Tracing (07/29/18 21:35) Continuous Ekg Monitoring (07/29/18 21:35) BNP (07/29/18 21:37) Hs C Reactive Protein (07/29/18 21:37) Magnesium (07/29/18 21:37) Manual Differential (07/29/18 21:38) Arterial Blood Draw (07/29/18 ) Medications Given in ED Current Medications Medications Dose Ordered Sig/Marlon Route Start Time Stop Time Status Last Admin Dose Admin Albuterol/ Ipratropium 3 ml ONCE ONCE INH 07/29/18 21:30 07/29/18 21:31 DC 2/22/19 22:22 3 ML Cefepime HCl 1000 mg/Sterile Water 10 ml @ 200 mls/hr ONCE ONCE IV 07/29/18 21:30 07/29/18 21:32 DC 07/29/18 22:29 200 MLS/HR Vital Signs/I&O 07/29/18 07/29/18 22:22 22:30 Pulse 82 Pulse Ox 98 O2 Delivery Nasal Cannula O2 Flow Rate 2.00 Capillary Refill : Progress Note : Time: 22:14 Progress Note Septic workup suspecting pneumonia. Cefepime. DuoNeb. IV fluids based on an ideal body weight of adjusted 160 pounds. 20 cc/kg to be 1500 cc. Diagnostic Imaging Diagonstic Imaging: Xray Plain Films/CT/US/NM/MRI: chest Comments [facility]. [place], [place] NAME: CASSANDRA GRAMAJO [facility] REC#: [id number] PT STATUS: REG ER : 1930 PHYSICIAN: AMBIKA GANDHI MD ADMIT DATE: 07/29/18/ER Draft Date of Exam:07/29/18 CHEST 1 VIEW, AP/PA ONLY INDICATION: Shortness of air and wheezing. COMPARISON: 08/31/2014. EXAMINATION: Single frontal view of the chest was obtained. FINDINGS: Normal heart size and pulmonary vascularity. Lungs show area of consolidative opacity within the medial left base partially obscuring the medial left hemidiaphragm. Otherwise, remainder of the lungs are clear. No large pleural effusion or pneumothorax is seen. The visualized osseous structures show no acute abnormalities. There is calcified aortic atherosclerosis. IMPRESSION: Possible focal area of atelectasis or infiltrate within the medial left base. Dictated on workstation # [id number] Dict: [id number]/29/[id number] Trans: 07/29/182148 [facility] [id number] Interpreted by: JOCE FOSS MD Electronically signed by: Reviewed: Reviewed by Me Departure Communication (Admissions) Time/Spoke to Admitting Phy: 00:[address] Olivares and he agrees to admit the patient on cefepime. Impression Primary Impression: Pneumonia Qualified Codes: J18.1 - Lobar pneumonia, unspecified organism Additional Impressions: UTI (urinary tract infection) Qualified Codes: N30.01 - Acute cystitis with hematuria Sepsis Qualified Codes: A41.9 - Sepsis, unspecified organism Acute respiratory failure with hypoxia and hypercapnia Disposition: ADMITTED INPATIENT Condition: Stable Admissions Decision to Admit Reason: Admit from ER (General) Decision to Admit/Date: Jul 29, 2018 Time/Decision to Admit Time: 22:20 Departure-Patient Inst. Referrals: AUBREY LOPEZ DO (PCP/Family) Primary Care Physician AMBIKA GANDHI Jul 29, 2018 21:25
[2018-07-29] MEDS ORDERED: CEFEPIME INJECTION 1,000 MG in WATER (STERILE) FOR INJECTION 10 ML IV ONE (21:30)
[2018-07-29] MEDS ORDERED: RT-ALBUTEROL/IPRATROPIUM 3 ML (DUONEB) VIAL INH ONE (21:30)
[2018-07-29 21:46] LABS: BASOPHILS % (AUTO) 0 % (0-10); EOSINOPHILS % (AUTO) 0 % (0-10); HEMATOCRIT 38 % (35-52); HEMOGLOBIN 12.9 G/DL (11.5-16.0); LYMPHOCYTES # (AUTO) 1.4 X 10^3 (1.0-4.0); LYMPHOCYTES % (AUTO) 8 % (12-44); MEAN CORPUSCULAR HEMOGLOBIN 31 PG (25-34); MEAN CORPUSCULAR HGB CONC 34 G/DL (32-36); MEAN CORPUSCULAR VOLUME 93 FL (80-99); MEAN PLATELET VOLUME 10.1 FL (7.4-10.4); MONOCYTES # (AUTO) 0.6 X 10^3 (0.0-1.0); MONOCYTES % (AUTO) 4 % (0-12); NEUTROPHILS # (AUTO) 14.7 X 10^3 (1.8-7.8); NEUTROPHILS % (AUTO) 88 % (42-75); PLATELET COUNT 249 10^3/uL (130-400); WHITE BLOOD COUNT 16.7 10^3/uL (4.3-11.0)
--- NOTE | 2018-07-29 21:49 | Diagnostic Imaging Report ---
INDICATION: Shortness of air and wheezing. COMPARISON: 08/31/2014. EXAMINATION: Single frontal view of the chest was obtained. FINDINGS: Normal heart size and pulmonary vascularity. Lungs show area of consolidative opacity within the medial left base partially obscuring the medial left hemidiaphragm. Otherwise, remainder of the lungs are clear. No large pleural effusion or pneumothorax is seen. The visualized osseous structures show no acute abnormalities. There is calcified aortic atherosclerosis. IMPRESSION: Possible focal area of atelectasis or infiltrate within the medial left base. Dictated by: Dictated on workstation # [id number]
[2018-07-29 21:58] LABS: INR 1.1 (0.8-1.4); PROTHROMBIN TIME PATIENT 14.6 SEC (12.2-14.7)
[2018-07-29 22:04] LABS: BAND NEUTROPHILS 12 %; BASOPHILS % (MANUAL) 0 %; EOSINOPHILS % (MANUAL) 0 %; LYMPHOCYTES % (MANUAL) 8 %; MONOCYTES % (MANUAL) 4 %; NEUTROPHILS % (MANUAL) 75 %; POLYCHROMASIA SLIGHT; REACTIVE LYMPHOCYTES 1 %
[2018-07-29 22:09] LABS: BILIRUBIN,URINE NEGATIVE (NEGATIVE); COLOR,URINE YELLOW; GLUCOSE, URINE (UA) 2+ (NEGATIVE); KETONES,URINE 1+ (NEGATIVE); LEUKOCYTE ESTERASE ,URINE 3+ (NEGATIVE); NITRITE,URINE POSITIVE (NEGATIVE); PH,URINE 6.5 (5-9); PROTEIN,URINE 3+ (NEGATIVE); UROBILINOGEN,URINE 1 MG/DL (NORMAL)
[2018-07-29 22:15] LABS: CLARITY,URINE CLOUDY
[2018-07-29 22:16] LABS: BACTERIA,URINE LARGE /HPF; RBC,URINE 0-2 /HPF; SQUAMOUS EPITHELIAL CELL,UR 0-2 /HPF; WBC,URINE TNTC /HPF
[2018-07-29 22:23] LABS: ABG BASE EXCESS 6.5 MMOL/L (-2.5-2.5); ABG OXYGEN SATURATION 96 % (94-100); ABG PCO2 49 MMHG (35-45); ABG PH 7.42 (7.37-7.43); ABG PO2 76 MMHG (79-93); ABG TCO2 32.3 MMOL/L (21.0-31.0)
[2018-07-29 22:26] LABS: ALLENS TEST YES-POS; INSPIRED O2 2L; VENTILATOR NO
[2018-07-29 22:27] LABS: ALANINE AMINOTRANSFERASE 6 U/L (0-55); ALBUMIN 3.1 GM/DL (3.2-4.5); ALKALINE PHOSPHATASE 54 U/L (40-136); BILIRUBIN,TOTAL 0.3 MG/DL (0.1-1.0); BUN/CREATININE RATIO 26; CALCIUM 8.8 MG/DL (8.5-10.1); CARBON DIOXIDE 29 MMOL/L (21-32); CHLORIDE 101 MMOL/L (98-107); CREATININE SERUM 0.86 MG/DL (0.60-1.30); GFR ESTIMATED > 60; GLUCOSE 263 MG/DL (70-105); MAGNESIUM 1.8 MG/DL (1.8-2.4); POTASSIUM 4.1 MMOL/L (3.6-5.0); SODIUM 140 MMOL/L (135-145); TOTAL PROTEIN 6.7 GM/DL (6.4-8.2)
[2018-07-29 22:27] LABS: PATIENT TEMP 99.1
[2018-07-29 22:30] VITALS: BP 179/72
[2018-07-30] VITALS (7 sets, daily range): BP systolic 136–154; BP diastolic 68–81
--- NOTE | 2018-07-30 00:57 | NUR ---
PT REPORTED BY RT STAFF TO HAVE PULLED OUT HER IV SITE, ATTEMPTED TO ESTABLISH AN ALTERNATE SITE X2, FAILED ATTEMPS D/T PT TREMORING
--- NOTE | 2018-07-30 02:10 | NUR ---
CASSANDRA GRAMAJO admitted to room 418-1, with an admitting diagnosis of PNEUMONIA AND UTI, on 07/30/18 from AM via [facility], accompanied by STAFF.CASSANDRA GRAMAJO introduced to surroundings, call light, bed controls, phone, TV, temperature control, lights, meal times, smoking policy, visitor policy, side rail policy, bathrooms and showers. Patient Rights given to patient in the handbook. CASSANDRA GRAMAJO verbalizes understanding that [facility] is not responsible for the loss or damage to any personal effects or valuables that are kept in the patients posession during their hospitalization.
[2018-07-30] MEDS: 1/2 NS W/KCL 20 MEQ/L 1,000 ML IV SCH ×2 (04:13→12:36)
[2018-07-30] MEDS ORDERED: ONDANSETRON 4 MG/2 ML (SDV) Z0FRAN IV PRN (04:15)
[2018-07-30] MEDS: inSUlin ASPART (NovoLOG) 1 UNIT/0.01 ML (CHARGE PER UNIT) SC SCH ×4 (06:20→21:00)
[2018-07-30] MEDS: RT-ALBUTEROL/IPRATROPIUM 3 ML (DUONEB) VIAL INH SCH ×5 (06:38→22:43)
[2018-07-30 06:44] LABS: BASOPHILS % (AUTO) 0 % (0-10); EOSINOPHILS % (AUTO) 0 % (0-10); HEMATOCRIT 37 % (35-52); LYMPHOCYTES # (AUTO) 1.8 X 10^3 (1.0-4.0); LYMPHOCYTES % (AUTO) 16 % (12-44); MEAN CORPUSCULAR HEMOGLOBIN 30 PG (25-34); MEAN CORPUSCULAR HGB CONC 32 G/DL (32-36); MEAN CORPUSCULAR VOLUME 94 FL (80-99); MEAN PLATELET VOLUME 10.4 FL (7.4-10.4); MONOCYTES # (AUTO) 0.8 X 10^3 (0.0-1.0); MONOCYTES % (AUTO) 7 % (0-12); NEUTROPHILS # (AUTO) 8.9 X 10^3 (1.8-7.8); NEUTROPHILS % (AUTO) 77 % (42-75); PLATELET COUNT 224 10^3/uL (130-400); RED CELL DISTRIBUTION WIDTH 12.8 % (10.0-14.5); WHITE BLOOD COUNT 11.6 10^3/uL (4.3-11.0)
[2018-07-30 07:02] LABS: BUN/CREATININE RATIO 27; CALCIUM 8.8 MG/DL (8.5-10.1); CARBON DIOXIDE 24 MMOL/L (21-32); CHLORIDE 104 MMOL/L (98-107); CREATININE SERUM 0.79 MG/DL (0.60-1.30); GFR ESTIMATED > 60; GLUCOSE 194 MG/DL (70-105); POTASSIUM 4.6 MMOL/L (3.6-5.0); SODIUM 140 MMOL/L (135-145)
[2018-07-30] MEDS ORDERED: ACETAMINOPHEN 325 MG TABLET PO PRN (08:15)
[2018-07-30] MEDS ORDERED: INSU100V16 SQ (10:20)
[2018-07-30] MEDS: SENNOSIDES 8.6 MG (SENOKOT) TAB PO SCH ×2 (10:23→21:00)
[2018-07-30] MEDS: SPIRONOLACTONE 25 MG (ALDACTONE) TAB PO SCH (10:23)
[2018-07-30] MEDS ORDERED: [UNRECOGNIZED DRUG - CODE] PO (10:23)
[2018-07-30] MEDS: meTOprolol SUCCINATE 100 MG (TOPROL XL) TAB PO SCH (10:23)
[2018-07-30] MEDS: CEFEPIME INJECTION 2,000 MG in WATER (STERILE) FOR INJECTION 20 ML IV SCH ×2 (10:24→21:00)
[2018-07-30] MEDS ORDERED: RT-ALBUINH IH (10:24)
[2018-07-30] MEDS ORDERED: INSU100V6 SQ (10:26)
[2018-07-30] MEDS: GALANTAMINE 8 MG PO SCH (10:28)
[2018-07-30] MEDS ORDERED: CHOL100045 PO (10:29)
[2018-07-30] MEDS ORDERED: FAMO20TA3 PO (10:30)
[2018-07-30] MEDS ORDERED: CYAN100088 PO (10:31)
[2018-07-30] MEDS ORDERED: CITA20TA9 PO (10:33)
[2018-07-30] MEDS ORDERED: ALBU0.63 IH (10:34)
[2018-07-30] MEDS ORDERED: NYST1POW22 MC (10:36)
[2018-07-30] MEDS ORDERED: MENT118G TP (10:38)
--- NOTE | 2018-07-30 10:41 | NUR ---
DID MEDICATION HISTORY FROM LIST FROM [facility].
--- NOTE | 2018-07-30 12:06 | History & Physical-Hospitalist ---
History of Present Illness HPI/Chief Complaint The patient is an 88-year-old white female residential resident who apparently it had increased cough and congestion over the past day or 2. They noted decrease in oxygen saturation around 90 although there is reports the patient did not have her oxygen on that she uses chronically 2-3 L. There was decline in mental status in an individual who has underlying COPD and so she was transferred to the emergency room. There left lower lobe atelectasis/ infiltrate was noted and she is being admitted for presumed diagnosis of pneumonia with exacerbation of underlying chronic respiratory failure. Patient has underlying dementia and was able to give little history somewhat sleepy with BiPAP on. She did not appear to be in acute distress but she would not answer any questions for me this morning. Date Seen 07/30/18 Time Seen by a Provider: 07:30 Attending Physician Patrick Simpson MD PCP Velvet Payne DO Referring Physician Date of Admission Jul 30, 2018 at 00:35 Home Medications & Allergies Home Medications Reviewed patient Home Medication Reconciliation performed by pharmacy medication reconciliations event crew technician and/or nursing. Patients Allergies have been reviewed. Allergies Allergies Coded Allergies Penicillins (Verified Allergy, Unknown, 04/01/06) codeine (Verified Allergy, Unknown, 04/01/06) propoxyphene (Verified Allergy, Unknown, 04/01/06) Past Ivvgbjz-Wrowrw-Pbygiq Hx Past Med/Social Hx: Reviewed and Corrections made Patient Social History Alcohol Use: Denies Use Recreational Drug Use: No Smoking Status: Never a Smoker Recent Foreign Travel: No Contact w/other who traveled: No Recent Hopitalizations: Yes Recent Infectious Disease Expo: No Immunizations Up To Date Tetanus Booster (TDap): Less than 5yrs Pediatric: Yes Date of Pneumonia Vaccine: May 26, 2008 Date of Influenza Vaccine: Mar 21, 2015 Past Medical History Surgeries: Coronary Stent Currently Using CPAP: No Currently Using BIPAP: No Cardiac: Atrial Fibrillation, Coronary Artery Disease, Hypertension Neurological: Dementia, TIA : No Reproductive: No Menopausal Gastrointestinal: Gastroesophageal Reflux Musculoskeletal: Osteoporosis Endocrine: Diabetes, Insulin dep Psychosocial: Anxiety, Depression History of Blood Disorders: No Family History No Pertinent Family Hx Review of Systems Constitutional: see HPI Physical Exam Physical Exam Vital Signs Vital Signs - First Documented 07/29/18 07/30/18 21:17 04:33 Temp 99.1 Pulse 92 Resp 22 B/P (MAP) 179/72 (107) Pulse Ox 95 O2 Delivery Nasal Cannula O2 Flow Rate 2.00 FiO2 40 Capillary Refill : Less Than 3 Seconds Height, Weight, BMI Height: 5'2.00" Weight: 242lbs. 0.0oz. 109.807999ha; 44.3 BMI Method:Stated General Appearance: No Apparent Distress, Chronically ill, Obese HEENT: PERRL/EOMI Respiratory: Chest Non Tender, Respiratory Distress (Mild), Wheezing (Left lower lobe with some diminishment in breath sounds and a few rales anteriorly chest was clear mild wheezing posteriorly on the right as well) Cardiovascular: No Gallop, No Murmur, Normal Peripheral Pulses, Irregularly Irregular Gastrointestinal: Normal Bowel Sounds, No Organomegaly, No Pulsatile Mass, Non Tender, Soft Extremity: Other (Extremities are warm trace upper and lower extremity edema noted) Neurologic/Psychiatric: Disoriented, Other (Patient arouses to verbal stimulation with BiPAP on but does not communicate patient does move all extremities) Skin: Damp, Pallor Results Results/Procedures Labs Laboratory Tests 07/29/18 21:38 07/29/18 22:05 07/30/18 05:50 07/31/18 05:32 Patient resulted labs reviewed. Assessment/Plan Admission Diagnosis 1. Acute on chronic hypercapnic respiratory failure secondary to pneumonia continue antibiotics bronchodilator therapy and BiPAP with supplemental oxygen. 2. Reported advanced dementia consistent with Alzheimer's will hold valproic acid but continue most of her other home medication. 3. History of COPD. 4. Type II diabetes insulin requiring continue sliding scale per now 5. Atrial fibrillation rate controlled patient not reportedly a candidate for anticoagulation due to frequent falls. 6. Will initiate Lovenox for DVT prophylaxis. 7. UA compatible with urinary tract infection which should be covered by cefepime started for number 1 awaiting culture and sensitivity. Admission Status: Inpatient Order (span 2 midnights) Reason for Inpatient Admission: See admission diagnosis Critical Care Critically Ill Patient Clinical Quality Measures DVT/VTE Risk/Contraindication: Risk Factor Score Per Nursin RFS Level Per Nursing on Admit: 4+=Very High PATRICK SIMPSON MD Jul 30, 2018 12:06
[2018-07-30] MEDS: ENOXAPARIN 40 MG/0.4 ML (LOVENOX) SYR SC SCH ×2 (12:30→23:50)
[2018-07-30] MEDS ORDERED: ONDANSETRON 4 MG/2 ML (SDV) Z0FRAN IVP PRN (12:30)
[2018-07-30] MEDS: morphine INJ 4 MG/ML 1 ML (VIAL/SYRINGE) IVP PRN ×2 (13:56→19:01)
[2018-07-30] MEDS: PREGABALIN 100 MG (LYRICA) CAPSULE PO SCH (21:00)
[2018-07-30] MEDS: FAMOTIDINE 20 MG (PEPCID) TABLET PO SCH (21:00)
[2018-07-30] MEDS: inSUlin DETERMIR 1 UNIT/0.01 ML (LEVEMIR) CHARGE PER UNIT SQ SCH (21:01)
--- NOTE | 2018-07-30 21:01 | NUR ---
THIS RN NON-ADMINISTERED THE PT'S SCHEDULED 2100 LEVEMIR 50 UNITS SQ DUE TO THE PT'S ACCUCHECK FINGER STICK BLOOD GLUCOSE BEING 174, PT HAVING A POOR APPETITE, AND THE PT NOT EATING DINNER.
[2018-07-31] VITALS: BP 139/65
[2018-07-31] MEDS: RT-ALBUTEROL/IPRATROPIUM 3 ML (DUONEB) VIAL INH SCH ×4 (01:11→13:29)
[2018-07-31 04:26] VITALS: BP 124/70
[2018-07-31] MEDS: 1/2 NS W/KCL 20 MEQ/L 1,000 ML IV SCH (04:29)
[2018-07-31 05:48] LABS: BASOPHILS % (AUTO) 0 % (0-10); EOSINOPHILS # (AUTO) 0.1 10^3/uL (0.0-0.3); EOSINOPHILS % (AUTO) 1 % (0-10); HEMATOCRIT 36 % (35-52); HEMOGLOBIN 11.2 G/DL (11.5-16.0); LYMPHOCYTES # (AUTO) 1.2 X 10^3 (1.0-4.0); LYMPHOCYTES % (AUTO) 12 % (12-44); MEAN CORPUSCULAR HEMOGLOBIN 30 PG (25-34); MEAN CORPUSCULAR HGB CONC 31 G/DL (32-36); MEAN CORPUSCULAR VOLUME 96 FL (80-99); MEAN PLATELET VOLUME 10.2 FL (7.4-10.4); MONOCYTES # (AUTO) 0.7 X 10^3 (0.0-1.0); MONOCYTES % (AUTO) 7 % (0-12); NEUTROPHILS % (AUTO) 80 % (42-75); PLATELET COUNT 195 10^3/uL (130-400); RED CELL DISTRIBUTION WIDTH 12.6 % (10.0-14.5); WHITE BLOOD COUNT 9.9 10^3/uL (4.3-11.0)
[2018-07-31 06:07] LABS: BUN/CREATININE RATIO 26; CALCIUM 8.9 MG/DL (8.5-10.1); CARBON DIOXIDE 27 MMOL/L (21-32); CHLORIDE 103 MMOL/L (98-107); CREATININE SERUM 0.77 MG/DL (0.60-1.30); GFR ESTIMATED > 60; GLUCOSE 151 MG/DL (70-105); POTASSIUM 4.3 MMOL/L (3.6-5.0); SODIUM 138 MMOL/L (135-145)
[2018-07-31] MEDS: inSUlin ASPART (NovoLOG) 1 UNIT/0.01 ML (CHARGE PER UNIT) SC SCH ×4 (06:38→23:14)
[2018-07-31] MEDS: GALANTAMINE 8 MG PO SCH (06:38)
--- NOTE | 2018-07-31 07:30 | NUR ---
Pt ripped bipap mask off and broke mask, RT notified by previous shift RN and Yulia, RT to bedside. Pt placed HFNC at 3.5lpm by RT. Pt having audible exp wheezes and increased WOB, Maame RT here and placed pt back on bipap. Pt tolerating w/no s/s of distress noted at this time.
[2018-07-31 08:00] VITALS: BP 128/68
[2018-07-31] MEDS: SPIRONOLACTONE 25 MG (ALDACTONE) TAB PO SCH (09:39)
[2018-07-31] MEDS: SENNOSIDES 8.6 MG (SENOKOT) TAB PO SCH ×2 (09:40→20:30)
[2018-07-31] MEDS: meTOprolol SUCCINATE 100 MG (TOPROL XL) TAB PO SCH (09:40)
--- NOTE | 2018-07-31 09:40 | NUR ---
PO meds held at this time d/t pt having increased WOB with bipap off earlier in the shift, see previous note.
[2018-07-31] MEDS: CEFEPIME INJECTION 2,000 MG in WATER (STERILE) FOR INJECTION 20 ML IV SCH ×2 (09:43→23:23)
--- NOTE | 2018-07-31 11:42 | Progress Note-Hospitalist ---
Subjective HPI/CC On Admission Date Seen by Provider: Jul 31, 2018 Time Seen by Provider: 08:45 The patient is an 88-year-old white female prison resident who apparently it had increased cough and congestion over the past day or 2. They noted decrease in oxygen saturation around 90 although there is reports the patient did not have her oxygen on that she uses chronically 2-3 L. There was decline in mental status in an individual who has underlying COPD and so she was transferred to the emergency room. There left lower lobe atelectasis/ infiltrate was noted and she is being admitted for presumed diagnosis of pneumonia with exacerbation of underlying chronic respiratory failure. Patient has underlying dementia and was able to give little history somewhat sleepy with BiPAP on. She did not appear to be in acute distress but she would not answer any questions for me this morning. Subjective/Events-last exam Patient appeared comfortable with BiPAP on. She is unable to communicate which the family states this pretty much her current baseline. She did not appear to be in acute distress open eyes and oriented to verbal stimulation tolerating BiPAP without difficulty or agitation. Focused Exam Lactate Level 07/29/18 21:50: Lactic Acid Level 1.38 Objective Exam Vital Signs Vital Signs Date Time Temp Pulse Resp B/P (MAP) Pulse Ox O2 Delivery O2 Flow Rate FiO2 07/31/18 09:57 89 22 96 30.00 07/31/18 08:00 98.1 128/68 (88) NIV Bilevel 07/30/18 10:33 60 Capillary Refill : Less Than 3 Seconds General Appearance: No Apparent Distress, Chronically ill, Obese HEENT: PERRL/EOMI Neck: Full Range of Motion, Normal Inspection, Non Tender Respiratory: Chest Non Tender, No Respiratory Distress, Wheezing (Diminished breath sounds in both bases no wheezing noted anteriorly faint posteriorly significantly improved with less rhonchi compared to yesterday with BiPAP on however.) Cardiovascular: No Gallop, No Murmur, Normal Peripheral Pulses, Irregularly Irregular Gastrointestinal: Normal Bowel Sounds, No Organomegaly, No Pulsatile Mass, Non Tender, Soft Extremity: Other (Extremities are warm trace upper and lower extremity edema noted) Neurologic/Psychiatric: Disoriented, Other (Patient arouses to verbal stimulation with BiPAP on but does not communicate patient does move all extremities) Skin: Damp, Pallor Results/Procedures Lab Laboratory Tests 07/31/18 05:32 Patient resulted labs reviewed. Assessment/Plan Assessment and Plan Assess & Plan/Chief Complaint Patient resulted labs reviewed. Assessment/Plan Admission Diagnosis 1. Acute on chronic hypercapnic respiratory failure secondary to pneumonia clinically improved continue antibiotics bronchodilator therapy and BiPAP with supplemental oxygen. 2. Reported advanced dementia consistent with Alzheimer's will hold valproic acid but continue most of her other home medication. 3. History of COPD. 4. Type II diabetes insulin requiring continue sliding scale per now 5. Atrial fibrillation rate controlled patient not reportedly a candidate for anticoagulation due to frequent falls. 6. Will initiate Lovenox for DVT prophylaxis. 7. UA compatible with urinary tract infection which should be covered by cefepime started for number 1 awaiting culture and sensitivity. Critical Care Critically Ill Patient Clinical Quality Measures DVT/VTE Risk/Contraindication: Risk Factor Score Per Nursin RFS Level Per Nursing on Admit: 4+=Very High VITOR SIMPSON MD Jul 31, 2018 11:42
[2018-07-31 12:00] VITALS: BP 132/62
[2018-07-31] MEDS: ENOXAPARIN 40 MG/0.4 ML (LOVENOX) SYR SC SCH (12:36)
[2018-07-31 16:19] VITALS: BP 167/85
--- NOTE | 2018-07-31 17:15 | NUR ---
PT REMOVED BIPAP AT THIS TIME, PT PLACED ON HFNC PER FAMILY REQUEST PT ON 3LPM W/NO S/S OF DISTRESS NOTED AT THIS TIME. PT FAMILY REQUEST PT BE GIVEN MORPHINE AT THIS TIME.
[2018-07-31] MEDS: morphine INJ 4 MG/ML 1 ML (VIAL/SYRINGE) IVP PRN ×3 (17:32→23:15)
--- NOTE | 2018-07-31 18:42 | NUR ---
THIS RN CALLED AND UPDATED DR SIMPSON ON PT STATUS AND FAMILY REQUEST FOR PT TO BE KEPT COMFORTABLE. ORDERS RECEIVED FOR 1MG ATIVAN Q1PRN 6MG MORPHINE Q1PRN. FAMILY AND RT UPDATED.
[2018-07-31] MEDS ORDERED: LORazepam INJ 2 MG/ML (ATIVAN) VIAL IVP PRN (18:45)
[2018-07-31] MEDS ORDERED: morphine INJ 10 MG/ML 1ML (SYR OR VIAL) ONE (19:03)
[2018-07-31] MEDS: PREGABALIN 100 MG (LYRICA) CAPSULE PO SCH (20:30)
[2018-07-31] MEDS: FAMOTIDINE 20 MG (PEPCID) TABLET PO SCH (20:30)
[2018-07-31] MEDS: inSUlin DETERMIR 1 UNIT/0.01 ML (LEVEMIR) CHARGE PER UNIT SQ SCH (23:14)
[2018-07-31] MEDS ORDERED: RT-ALBUTEROL/IPRATROPIUM 3 ML (DUONEB) VIAL INH PRN (23:45)
[2018-08-01] MEDS: ENOXAPARIN 40 MG/0.4 ML (LOVENOX) SYR SC SCH ×2 (00:04→11:29)
[2018-08-01] MEDS: GALANTAMINE 8 MG PO SCH (04:36)
[2018-08-01] MEDS: inSUlin ASPART (NovoLOG) 1 UNIT/0.01 ML (CHARGE PER UNIT) SC SCH ×2 (04:36→11:29)
[2018-08-01] MEDS: morphine INJ 4 MG/ML 1 ML (VIAL/SYRINGE) IVP PRN ×4 (06:18→20:09)
--- NOTE | 2018-08-01 06:24 | NUR ---
Pt with copious amounts of oral secretions. Dr. Olivares notified. Orders received for Robinul 0.2 mg q4 hrs PRN.
[2018-08-01] MEDS: GLYCOPYRROLATE 0.2 MG/ML (ROBINUL) 2 ML VIAL IV PRN ×3 (06:29→20:09)
[2018-08-01] MEDS: SPIRONOLACTONE 25 MG (ALDACTONE) TAB PO SCH (07:55)
[2018-08-01] MEDS: meTOprolol SUCCINATE 100 MG (TOPROL XL) TAB PO SCH (07:56)
[2018-08-01] MEDS: SENNOSIDES 8.6 MG (SENOKOT) TAB PO SCH (07:56)
--- NOTE | 2018-08-01 09:17 | NUR ---
Family at bedside, requesting to keep pt comfortable. Decline turn at this time, morning meds and vitals to be obtained. Pt resting with eyes closed at this time no s/s noted. Family educated on frequency of medications available to help keep pt comfortable and that pt may have them at anytime and to inform staff if they would like pt to have meds.
[2018-08-01] MEDS: CEFEPIME INJECTION 2,000 MG in WATER (STERILE) FOR INJECTION 20 ML IV SCH (09:22)
--- NOTE | 2018-08-01 11:39 | NUR ---
PALLIATIVE CARE RN was talking with family as they are friends outside of the hospital. I asked about the reason they are all here and it was disclosed that their loved one is dying and not going to make it. They report that once Dr. Payne rounds they will make her CCMO. I offered to go see the patient. Upon entering the room noted patient to be on 2 L O2 per n/c. Head of bed is elevated to 45* and she appears to be very comfortable. She is noted to have green crusty dried phlegm on her lips. She has suction in the room but her yonker was totally filled with the same dried appearing matter, rendering it unusable. I have did not find toothettes in the room so left to collect these and a clean yonker. I performed good oral care and was able to get the crusties off of her lips. Attempted to suction but unable to get down to where the matter was hanging. Educated the family what I found and life expectancy. They are appreciative of the education and the attention to the patients needs. Have spoken to the RN regarding need for oral care q 2 hours. This can be preformed by family as well but it is not their job to ensure it happens. Will attempt to catch Dr. Payne when she rounds and ask for Park and for CC orders. Will continue to offer support to the family and the patient.
[2018-08-01] MEDS ORDERED: LORazepam INJ 2 MG/ML (ATIVAN) VIAL IVP PRN (14:00)
[2018-08-01] MEDS ORDERED: ACETAMINOPHEN 650 MG SUPP (TYLENOL) PR PRN (14:00)
[2018-08-01] MEDS ORDERED: SALIVA STIMULANT MOUTH SPRAY (BIOTENE) 1.5 OZ MM PRN (14:00)
[2018-08-01] MEDS ORDERED: PROMETHAZINE INJ 25 MG/ML (PHENERGAN) AMP IVP PRN (14:00)
[2018-08-01] MEDS ORDERED: GLYCOPYRROLATE 0.2 MG/ML (ROBINUL) 2 ML VIAL IV PRN (14:00)
[2018-08-01] MEDS ORDERED: BISACODYL 10 MG SUPP (DULCOLAX) PR PRN (14:00)
[2018-08-01] MEDS ORDERED: ARTIFICAL TEARS 0.4 ML UNIT DOSE (REFRESH PLUS) OU PRN (14:00)
[2018-08-01] MEDS ORDERED: ONDANSETRON 4 MG/2 ML (SDV) Z0FRAN IVP PRN (14:00)
[2018-08-01] MEDS ORDERED: RT-ALBUTEROL/IPRATROPIUM 3 ML (DUONEB) VIAL INH PRN (14:00)
--- NOTE | 2018-08-01 14:50 | NUR ---
Per family request pt taken off Oxygen at this time and given Morphine for air hunger at this time. Rody, pastoral care at bedside at this time. Addendum: 08/01/18 at 1511 by JAY LOPEZ RN Pt family request to wait on guzman catheter placement at this time.
--- NOTE | 2018-08-01 17:07 | NUR ---
[employer] Teacher visit to offer emotional and spiritual support to pt and family. This valve mechanic has had a pastoral relationship with the pt and her family for 5 years through [facility]. Pt is known for loving to sing. I led family in singing Amazing Katelyn at the bedside, facilitated storytelling, and offered prayer.
--- NOTE | 2018-08-01 17:46 | Progress Note (SOAP) ---
Subjective Date Seen by a Provider: Aug 01, 2018 Time Seen by a Provider: 12:20 Subjective/Events-last exam Fwup acute on chronic respiratory failure, pneumonia, UTI, advanced alzheimer's dementia. Patient unresponsive per family and they wish for comfort care only. Focused Exam Lactate Level 07/29/18 21:50: Lactic Acid Level 1.38 Objective Exam Vital Signs Date Time Temp Pulse Resp B/P (MAP) Pulse Ox O2 Delivery O2 Flow Rate FiO2 08/01/18 10:16 Nasal Cannula 4.00 08/01/18 08:00 High Flow N/C 2.00 07/31/18 20:00 High Flow N/C 3.00 07/31/18 18:42 98 Nasal Cannula 2.00 I & O 08/01/18 07:00 Intake Total 220 ml Balance 220 ml Capillary Refill : Less Than 3 Seconds General Appearance: Other (unresponsive to voice and touch) Respiratory: Decreased Breath Sounds, Rales, Other (rattling) Cardiovascular: Systolic Murmur, Irregularly Irregular Gastrointestinal: normal bowel sounds, soft Extremity: No Pedal Edema Neurologic/Psychiatric: Other (unresponsive) Skin: Warm/Dry Results Lab Laboratory Tests 08/01/18 06:02: Glucometer 162H Microbiology 07/29/18 Blood Culture - Preliminary, Resulted No growth 07/29/18 Influenza Types A,B Antigen (JOCELYN) - Final, Complete 07/29/18 Urine Culture - Final, Complete Proteus mirabilis Assessment/Plan Assessment/Plan Assess & Plan/Chief Complaint 1. Acute on Chronic Respiratory Failure/Pneumonia/UTI--in setting of advanced alzheimer's disease and unresponsiveness for at least last 24hrs, family wants to go with comfort care only Clinical Quality Measures DVT/VTE Risk/Contraindication: Risk Factor Score Per Nursin RFS Level Per Nursing on Admit: 4+=Very High AUBREY LOPEZ DO Aug 01, 2018 17:46
--- NOTE | 2018-08-02 02:43 | NUR ---
PT TIME OF 000. RESPIRATIONS CEASED AND NO HEARTBEAT WITNESSED BY TEOFILO ONEAL. BODY WAS CLEANED AND PREPARED FOR HOME BY THIS RN, TEOFILO ONEAL, PADMINI ONEAL, AND LEONARDA RENT. CALLED [employer] AND DENIED USE FOR TRANSPLANT. FAMILY WAS NOT PRESENT, NOTIFIED AT 0008-NOTIFIED MARVEL, SON. PERSONAL ITEMS TAKEN BY FAMILY. HOME CALLED AT 0135. ARRIVED AT 0230 TO SENIOR PRODUCT MARKETING MANAGER BODY.
--- NOTE | 2018-08-02 19:23 | Discharge Summary ---
Diagnosis/Chief Complaint Date of Admission Jul 30, 2018 at 00:35 Date of Discharge Aug 02, 2018 at 00:08 Discharge Diagnosis 1. Acute on Chronic Respiratory Failure 2. Acute Pneumonia 3. Acute UTI 4. Advanced End Stage Alzheimer's Dementia 5. Diabetes mellitus--insulin requiring 6. Hypertension 7. Atrial Fibrillation 8. History of CAD Discharge Summary Hospital Course Hospital Course This is a 88 year old [facility] patient with advanced alzheimer's dementia who was brought to the hospital with acute respiratory distress. She was found to have pneumonia with acute respiratory failure as well as a UTI and new onset atrial fibrillation. She was admitted and started on BiPAP as well as IV antibiotics and IVFs however after realizing her poor and guarded condition the family decided that aggressive care was likely futile and the patient was placed on comfort care measures per family request and she at about midnight on . The family was notified and the patient's body was released to the home of their choice. Labs Laboratory Tests 07/30/18 20:16: Glucometer 174H 07/31/18 05:32: Red Blood Count 3.78L, Hemoglobin 11.2L, Mean Corpuscular Hemoglobin Concent 31L , Neutrophils (%) (Auto) 80H, Neutrophils # (Auto) 8.0H, Blood Urea Nitrogen 20H , Glucose Level 151H 07/31/18 11:07: Glucometer 167H 07/31/18 16:24: Glucometer 150H 08/01/18 06:02: Glucometer 162H Procedures None. Discharge Physical Examination Allergies: Coded Allergies: Penicillins (Verified Allergy, Unknown, 04/01/06) codeine (Verified Allergy, Unknown, 04/01/06) propoxyphene (Verified Allergy, Unknown, 04/01/06) Vitals & I&Os Vital Signs Date Time Temp Pulse Resp B/P (MAP) Pulse Ox O2 Delivery O2 Flow Rate FiO2 08/01/18 20:00 High Flow N/C 2.00 07/31/18 18:42 98 07/31/18 16:19 96.9 90 22 167/85 (112) 07/30/18 10:33 60 General Appearance: Severe Distress (labored gurgling breathing) Respiratory: Other (rattling respirations) Cardiovascular: Other (irregular) Extremities: Other (pale) Neuro: Other (unresponsive) Discharge Home Medications Reviewed and agree with Discharge Medication list on patient's Discharge Instruction sheet Instructions to Patient/Family Please see electronic discharge instructions given to patient. Clinical Quality Measures DVT/VTE Risk/Contraindication: Risk Factor Score Per Nursin RFS Level Per Nursing on Admit: 4+=Very High AUBREY LOPEZ DO Aug 02, 2018 19:23
--- NOTE | 2018-08-03 16:45 | Physician Query Clarification ---
PQ-Uncertain Diagnosis Admission/Discharge Admission Date: Jul 30, 2018 at 00:35 Discharge Date: Aug 02, 2018 at 00:08 The medical record reflects the following clinical scenario: History/Risk Factors: pneumonia Clinical Findings: elevated WBC, normal lactic acid Treatment: IV antibiotics Question: Is SEPSIS a clinically valid diagnosis? SEPSIS was documented in the ED recordwith no further documentation in the medical record. Please document a response below. PHYSICIAN RESPONSE Diagnosis clinically valid: Undetermined In responding to this query, please exercise your independent professional judgment. The purpose of this communication is to more accurately reflect the complexity of your patients condition. The fact that a question is asked does not imply that any particular answer is desired or expected. Thank you for your timely response to this clarification. Requestors name: [ ] Phone # [ ] THIS PHYSICIAN QUERY FORM IS A PERMANENT PART OF THE MEDICAL RECORD SCOTT JORDAN Aug 03, 2018 16:45 AUBREY LOPEZ DO Aug 05, 2018 12:38
--- NOTE | 2018-08-03 16:45 | Physician Query-General Query ---
Physician Query-General Query to Physician: Please document cause of . PHYSICIAN RESPONSE: Based on the clinical findings in the record, please respond to the query above on this document as an addendum. Possible, probable, or questionable diagnosis can be coded for INPATIENTS ONLY. Physician Response: Physician Response Acute REspiratory Failure as per the discharge summary If you have questions please contact: Dietary Assistant: Ext: Thank you for your time and cooperation. Clinical Sheet Metal Erector/Dietary Assistant This is a permanent part of the medical record SCOTT JORDAN Aug 03, 2018 16:45 AUBREY LOPEZ DO Aug 05, 2018 12:39
--- NOTE | 2018-08-03 16:48 | Physician Query-General Query ---
Physician Query-General Query to Physician: What do you feel was principal reason for patients admission: 1. pneumonia 2. acute on chronic respiratory failure 3. other, please specify PHYSICIAN RESPONSE: Based on the clinical findings in the record, please respond to the query above on this document as an addendum. Possible, probable, or questionable diagnosis can be coded for INPATIENTS ONLY. Physician Response: Physician Response 1. Acute on Chronic Respiratory Failure 2. Pneumonia Once again as per discharge summary If you have questions please contact: Court Clerk: Ext: Thank you for your time and cooperation. Clinical Steam Conditioning Operator/Court Clerk This is a permanent part of the medical record SCOTT JORDAN Aug 03, 2018 16:48 AUBREY LOPEZ DO Aug 05, 2018 12:41
== END 2018-08-02 00:08 | disposition expired | DRG 193 ==
LOC: EDUNIT# 21:17 → ER 21:18 → 4TH 07-30 00:35
PROVIDERS: ADMIT Internal Medicine; ATTEND Internal Medicine
DX: J18.1 Lobar pneumonia, unspecified organism (principal); J96.21 Acute and chronic respiratory failure with hypoxia; J96.22 Acute and chronic respiratory failure with hypercapnia; J44.0 Chronic obstructive pulmonary disease with (acute) lower respiratory infection; N30.01 Acute cystitis with hematuria; I10 Essential (primary) hypertension; I25.10 Atherosclerotic heart disease of native coronary artery without angina pectoris; I48.91 Unspecified atrial fibrillation; Z51.5 Encounter for palliative care; Z66 Do not resuscitate; K21.9 Gastro-esophageal reflux disease without esophagitis; M81.0 Age-related osteoporosis without current pathological fracture; E11.9 Type 2 diabetes mellitus without complications; F41.9 Anxiety disorder, unspecified; F32.9 Major depressive disorder, single episode, unspecified; G30.9 Alzheimer's disease, unspecified; F02.80 Dementia in other diseases classified elsewhere, unspecified severity, without behavioral disturbance, psychotic disturbance, mood disturbance, and anxiety; Z79.4 Long term (current) use of insulin; Z86.73 Personal history of transient ischemic attack (TIA), and cerebral infarction without residual deficits; Z88.0 Allergy status to penicillin; Z88.5 Allergy status to narcotic agent
CPT/HCPCS: 36415; 36600; 71045; 80048; 80053; 81000; 82805; 82962; 83605; 83735; 83880; 85007; 85025; 85027; 85610; 85730; 86141; 87040; 87077; 87088; 87186; 87804; 93005; 94640; 94660; 96361; 96365